=== PATIENT | female | born 1980 | race African-American/Black ===

== ENCOUNTER 2019-01-17 19:45 | Inpatient (IN) | payer MEDICAID | END 2019-01-23 17:34 | disposition home or self-care (01) | LOC: TELE 19:46 → TELE-WESTW 01-19 14:46 → ER 19:45 → TELE-WESTW 01-19 14:40 | DX: J45.52 Severe persistent asthma with status asthmaticus (principal); J96.20 Acute and chronic respiratory failure, unspecified whether with hypoxia or hypercapnia; R65.10 Systemic inflammatory response syndrome (SIRS) of non-infectious origin without acute organ dysfunction; E87.6 Hypokalemia; R74.0 Nonspecific elevation of levels of transaminase and lactic acid dehydrogenase [LDH] ==

== ENCOUNTER 2022-01-10 19:33 | Emergency (ER) | payer MEDICAID | END 2022-01-10 21:35 | disposition left against medical advice (07) | LOC: ER 19:33 | DX: Z04.3 Encounter for examination and observation following other accident (principal); Z53.21 Procedure and treatment not carried out due to patient leaving prior to being seen by health care provider; W19.XXXA Unspecified fall, initial encounter; Y93.89 Activity, other specified; Y92.89 Other specified places as the place of occurrence of the external cause; Y99.8 Other external cause status ==